=== PATIENT | female | born 1995 ===

== ENCOUNTER 2024-08-18 23:23 | Inpatient (IN) | payer BC ==
[2024-08-18] MEDS ORDERED: Sodium Chloride 0.9% 10 ML Syringe FLUSH PRN (23:41)
[2024-08-18] MEDS ORDERED: Misoprostol 200 MCG Tab PO PRN (23:41)
[2024-08-18] MEDS ORDERED: Carboprost Tromethamine 250 MCG/1 mL Vial IM PRN (23:41)
[2024-08-18] MEDS ORDERED: Water For Irrigation,Sterile 1,000 ML Container IRR PRN (23:41)
[2024-08-18] MEDS ORDERED: Ondansetron 4 MG/2 ML SDV IVPUSH PRN (23:41)
[2024-08-18] MEDS ORDERED: Sodium Chloride 0.9% 20 ML SDV IV PRN (23:41)
[2024-08-18] MEDS ORDERED: Tranexamic Acid in NACL,ISO-OS 1,000 MG in Premix Bag 1 BAG IV PRN (23:41)
[2024-08-18] MEDS ORDERED: Butorphanol 2 MG/ML SDV IVPUSH PRN (23:41)
[2024-08-18] MEDS ORDERED: Methylergonovine 0.2 MG/1 ML Amp IM PRN (23:41)
[2024-08-18] MEDS ORDERED: Sodium Chloride 0.9% 2.5 ML Syringe FLUSH PRN (23:41)
[2024-08-18] MEDS ORDERED: Lactated Ringers 1,000 ML IV SCH (23:45)
[2024-08-19] MEDS: Ampicillin 2 GM in Sodium Chloride 0.9% 100 ML IV ONE (00:04)
[2024-08-19 00:24] LABS: HEMATOCRIT 37.1 % (37.0-47.0); HEMOGLOBIN 13.1 g/dL (12.0-16.0); MEAN CORPUSCULAR HEMOGLOBIN 31.5 pg (28.0-32.0); MEAN CORPUSCULAR HGB CONC 35.3 g/dL (32.0-36.0); MEAN CORPUSCULAR VOLUME 89.2 fL (83.0-99.0); MEAN PLATELET VOLUME 9.6 fL (9.4-12.3); PLATELET COUNT,PLT 281 K/uL (150-400); RED BLOOD CELL COUNT 4.16 M/uL (4.10-5.30)
[2024-08-19] MEDS: Ampicillin 1 GM in Sodium Chloride 0.9% 50 ML IV SCH (03:00)
[2024-08-19] MEDS: Oxytocin/0.9 % Sodium Chloride 30 UNIT/500 ML BAG IV SCH (06:45)
[2024-08-19] MEDS: Lidocaine 1% 50 ML MDV INJECT PRN (06:53)
[2024-08-19] MEDS ORDERED: Phenylephrine HCl In 0.9% NaCl 1 MG/10 ML Syringe IVPUSH PRN (08:35)
[2024-08-19] MEDS ORDERED: ePHEDrine 50 MG/ML SDV IVPUSH PRN (08:35)
[2024-08-19] MEDS: Ibuprofen 800 MG Tab PO PRN (08:36)
[2024-08-19] MEDS: Docusate Sodium 100 MG Cap PO PRN (08:37)
[2024-08-19] MEDS: Acetaminophen 500 MG Tab PO PRN (08:37)
[2024-08-19] MEDS: Lanolin 100% Cream 7 GM Tube TOP PRN (08:38)
[2024-08-19] MEDS: Benzocaine/Menthol 20%-0.5% Spray 78 GM Cannister TOP PRN (08:38)
[2024-08-19] MEDS: Witch Hazel Medicated Pads 40/Jar TOP PRN (08:38)
[2024-08-19] MEDS ORDERED: dexmedeTOMIDine HCl 200 MCG/2 ML SDV EPIDUR SCH (08:45)
[2024-08-19] MEDS ORDERED: Ropivacaine HCl/PF 400 MG in Premix Bag 1 BAG EPIDUR SCH (08:45)
[2024-08-20 05:37] LABS: HEMATOCRIT 33.2 % (37.0-47.0)
== END 2024-08-20 13:36 | disposition home or self-care (01) | DRG 560 ==
LOC: MW.OB 23:23 → MW.OBCHECK 23:23 → MW.OB 23:41 → MW.OBCHECK 23:41 → OBSVTOIN 08-19 07:39 → MW.OB 08-19 09:38
PROVIDERS: ADMIT Obstetrics & Gynecology Obstetrics; ATTEND Obstetrics & Gynecology Obstetrics
PROC: 10E0XZZ Delivery of Products of Conception, External Approach (ICD-10-PCS; principal; 2024-08-19)
DX: O99.284 Endocrine, nutritional and metabolic diseases complicating childbirth (principal); Z37.0 Single live birth; E03.9 Hypothyroidism, unspecified; O99.824 Streptococcus B carrier state complicating childbirth; Z3A.39 39 weeks gestation of pregnancy
CPT/HCPCS: 36415; 59025; 59409; 85014; 85018; 85027; 86592; 86850; 86900; 86901; A9270-GY; J0290; J2590; J3490